=== PATIENT | male | born 1965 | race Caucasian/White ===

== ENCOUNTER 2018-01-05 11:20 | Outpatient (CLI) | payer SELFPAY ==
[~2018-01-05] VITALS: Ht 177.8 cm; Wt 90.9 kg
--- NOTE | ~2018-01-05 | HEMODYNAMI ---
PATIENT:ISSA CUMMINS MEDICAL RECORD: [id number] : 63 LOCATION:[facility] ADMISSION DATE: 01/05/18 Generatedon:01/05/201816:04 Patient name: ISSA CUMMINS Patient #: [id number] SSN: DO B: 1965 Date of study: 01/05/2018 Page: Of Hemodynamic Procedure Report Patient Data Patient Demographics Procedure consent was obtained First Name: ISSA Gender: Male Last Name: PLACIDO : 1965 [facility] Initial: DOC Age: 52 year(s) Patient #: [id number] Race: Unknown Additional ID: [id number] Contact details Address: [address] [place] [address] State: [place] City: [place] Zip code: [address] Past Medical History Allergies: No known allergies Admission Admission Data Admission Date: 01/05/2018 Admission Time: 11:20 Lab Results Lab Result Date: 01/05/2018 Lab Result Time: 0:00 Biochemistry Name Units Result Min Max BUN mg/dl 13 --(--*-)-- 7 18 Creatinine mg/dl 1 --(--*-)-- 0.6 1.3 CBC Name Units Result Min Max Hematocrit % 55.4 --(----)*- 42 54 Hemoglobin g/dl 19.8 --(----)-* 13.5 17.5 Procedure Procedure Types Cath Procedure Diagnostic Procedure [facility] w/Coronaries Sedation Charges Moderate Sedation up to 15 minutes Procedure Description Procedure Date Procedure Date: 01/05/2018 Procedure Start Time: 15:47 Procedure End Time: 16:02 Procedure Staff Name Function Lonnie Pereyra MD Performing Physician Prashanth Long RT Monitor Ervin Duncan RN Nurse Ubaldo Gutierrez RT Scrub Vincenzo Ashley RT Senior Sales Engineer Procedure Data Cath Procedure Fluoroscopy Diagnostic fluoroscopy Total fluoroscopy Time: 7.7 time: 7.7 min min Diagnostic fluoroscopy Total fluoroscopy dose: dose: 468.25 mGy 468.25 mGy Contrast Material Contrast Material Type Amount (ml) Isovue 370 98 Entry Location Entry Primary Successful Side Size Upsize Upsize Entry Closure Kenney ccessful Closure Location (Fr) 1 (Fr) 2 (Fr) Remarks Device Remarks Radial Right 6 Fr Mechanical artery Short Compression Estimated blood loss: 5 ml Diagnostic catheters Device Type Used For End Catheter Placement DIAGNOSTIC [place] 110cm 5 Procedure Fr catheter ([id number]) DIAGNOSTIC AR 2 MOD 5 Fr Procedure catheter ([id number]) Procedure Complications No complications Procedure Medications Medication Administration Route Dosage Oxygen etCO2 Nasal cannula 2 l/min Heparin Flush Bag added to field 2 bags (1000units/500ml NS) 0.9% NaCl I.V. 100 ml/hr Radial Cocktail added to field 1 syringe (Verapomil 2mg/Nitro 400mcg/Heparin 1500units) Fentanyl I.V. 100 mcg Versed I.V. 2 mg Radial Cocktail I.A. 1 syringe (Verapomil 2mg/Nitro 400mcg/Heparin 1500units) Fentanyl I.V. 50 mcg Versed I.V. 1 mg Fentanyl I.V. 50 mcg Versed I.V. 1 mg Solumedrol I.V. 125 mg Hemodynamics Rest HGB: 19.8 (g/dl) Heart Rate: 88 (bpm) Snapshots Pre Cath Intra NCS Post Cath Vital Signs Time Heart Resp SPO2 etCO2 NIBP (mmHg) Rhythm Pain Sedation Rate (ipm) (%) (mmHg) Status Level (bpm) 15:36:35 83 17 99 21.7 158/111(134) NSR 0 (11) 10(A) , No pain 15:41:00 80 16 98 24 138/100(124) NSR 0 (11) 10(A) , No pain 15:45:15 81 16 84 15 132/102(117) NSR 0 (11) 10(A) , No pain 15:49:30 74 17 91 22.5 125/86(99) NSR 0 (11) 10(A) , No pain 15:53:41 86 17 89 26.2 129/92(103) NSR 0 (11) 10(A) , No pain 15:57:57 71 16 89 22.4 116/79(95) NSR 0 (11) 10(A) , No pain 16:02:09 76 17 90 12 118/89(99) NSR 0 (11) 10(A) , No pain Medications Time Medication Route Dose Verified Delivered Reason Notes Effectiveness by by 15:37:49 Oxygen etCO2 2 l/min Lonnie Mueller Per Nasal Hafsa Duncan RN physician cannula 15:37:59 Heparin Flush added 2 bags Lonnie Mueller used for Bag to Hafsa Duncan RN procedure (1000units/500ml field NS) 15:38:09 0.9% NaCl I.V. 100 Lonnie Mueller Per ml/hr Hafsa Duncan RN physician 15:38:23 Radial Cocktail added 1 Lonnie Ervin used for (Verapomil to syringe Hafsa Duncan RN procedure 2mg/Nitro field 400mcg/Heparin 1500units) 15:45:51 Fentanyl I.V. 100 mcg Lonnie Mueller for sedation Hafsa Duncan RN 15:45:58 Versed I.V. 2 mg Lonnie Mueller for sedation Hafsa Duncan RN 15:47:51 Radial Cocktail I.A. 1 Lonnie Lonnie for (Verapomil syringe Hafsa Pereyra MD vasodilation 2mg/Nitro 400mcg/Heparin 1500units) 15:49:09 Fentanyl I.V. 50 mcg Lonnie Mueller for sedation Hafsa Duncan RN 15:49:14 Versed I.V. 1 mg Lonnie Mueller for sedation Hafsa Duncan RN 15:53:10 Fentanyl I.V. 50 mcg Lonnie Mueller for sedation Hafsa Duncan RN 15:53:14 Versed I.V. 1 mg Lonnie Mueller for sedation Hafsa Duncan RN 16:02:21 Solumedrol I.V. 125 mg Lonnie Mueller Per Hafsa Duncan RN physician Procedure Log Time Note 15:10:06 Vincenzo Ashley RT(R) sent for patient. Start room use. 15:21:07 Time tracking: Regular hours (M-F 7:00 - 5:00) 15:21:11 Plan of Care:Hemodynamics will remain stable., Cardiac rhythm will remain stable., Comfort level will be maintained., Respiratory function will remain adequate., Patient/ family verbilizes understanding of procedure., Procedure tolerated without complication., Recovers from procedure without complications.. 15:24:53 Patient received from ED to CCL 3 Alert and oriented. Tansferred to table in Supine position. 15:24:54 Warm blankets applied, and shravan hugger turned on for patient comfort. 15:24:55 Correct patient and procedure confirmed by team. 15:24:56 Signed procedure consent form obtained from patient. 15:24:57 ECG and BP/O2 sat monitors applied to patient. 15:24:59 Pre-procedure instructions explained to patient. 15:25:00 Pre-op teaching completed and patient verbalized understanding. 15:25:01 Family in waiting room. 15:25:03 Patient NPO since Breakfast. 15:25:15 Patient allergic to No known allergies 15:25:38 Previous problem with sedation/anesthesia? No ? 15:25:40 Snore? Yes 15:25:41 Sleep apnea? No 15:25:42 Deviated septum? No 15:25:42 Opens mouth fully? Yes 15:25:43 Sticks out tongue? Yes 15:25:45 Airway obstruction? No ? 15:25:47 Dentures? No ? 15:35:13 Vital chart was started 15:35:15 Baseline sample Acquired. 15:37:49 Oxygen 2 l/min etCO2 Nasal cannula was administered by Ervin Duncan RN; Per physician; 15:37:59 Heparin Flush Bag (1000units/500ml NS) 2 bags added to field was administered by Ervin Duncan RN; used for procedure; 15:38:09 0.9% NaCl 100 ml/hr I.V. was administered by Ervin Duncan RN; Per physician; 15:38:23 Radial Cocktail (Verapomil 2mg/Nitro 400mcg/Heparin 1500units) 1 syringe added to field was administered by Ervin Duncan RN; used for procedure; 15:42:46 Rhythm: sinus rhythm 15:42:49 Full Disclosure recording started 15:43:01 H&P Date Dictated: 01/05/2018 New H&P dictated by physician.. 15:43:07 Is the patient allergic to Iodine/contrast media? No. 15:43:45 Is patient on blood thinner?No 15:43:47 Patient diabetic? No. 15:43:52 Modified Venkata's test Ulnar < 7 seconds 15:43:53 Patient pain scale 0/10 ?. 15:43:57 IV patent on arrival in right forearm with 0.9% NaCl at [facility]. 15:44:32 Lab Result : BUN 13 mg/dl ::32 Lab Result : Creatinine 1 mg/dl ::32 Lab Result : Hemoglobin 19.8 g/dl ::32 Lab Result : Hematocrit 55.4 % 15:44:34 Lab results completed and on chart. 15:44:36 Right Radial & Right Groin area was prepped with chlora-prep and draped in sterile fashion 15:44:37 Alarms reviewed by R. N. 15:44:37 Sharps counted by scrub and verified by R.N. 15:44:38 Physician arrived 15:44:39 --------ALL STOP TIME OUT------ :44:39 Final Timeout: patient, procedure, and site verified with staff and physician. All members of the team are in agreement. 15:44:41 Right Radial & Right Groin site verified by team. 15:44:44 Physical assessment completed. ASA score P 2 - A patient with mild systemic disease as per Lonnie Pereyra MD. 15:44:46 Use device set Radial Dx or PCI 15:44:47 ACIST Syringe (59993) opened to sterile field. 15:44:48 Medline Cath Pack ([id number]) opened to sterile field. 15:44:48 Bag Decanter (2002) opened to sterile field. 15:44:49 ACIST Hand Control (83713) opened to sterile field. 15:44:49 ACIST Manifold (40897) opened to sterile field. 15:44:49 Tegaderm 4 x 4 (1626W) opened to sterile field. 15:44:50 MBrace Wrist Support ([id number]) opened to sterile field. 15:44:51 SHEATH 6Fr Prelude Radial ([id number]) opened to sterile field. 15:44:52 DIAGNOSTIC WIRE .035 260cm J wire (710183) opened to sterile field. 15:45:51 Fentanyl 100 mcg I.V. was administered by Ervin Duncan RN; for sedation; 15:45:58 Versed 2 mg I.V. was administered by Ervin Duncan RN; for sedation; 15:47:45 Procedure started. 15:47:48 Local anesthetic to right radial artery with Lidocaine 2% by Lonnie Pereyra MD.INITIAL ACCESS ONLY 15:47:51 Radial Cocktail (Verapomil 2mg/Nitro 400mcg/Heparin 1500units) 1 syringe I.A. was administered by Lonnie Pereyra MD; for vasodilation; 15:47:54 A 6 Fr Short sheath was inserted into the Right Radial artery 15:48:00 A DIAGNOSTIC [place] 110cm 5 Fr catheter (801377) was advanced over the wire and used for Procedure. 15:49:09 Fentanyl 50 mcg I.V. was administered by Ervin Duncan RN; for sedation; 15:49:14 Versed 1 mg I.V. was administered by Ervin Duncan RN; for sedation; 15:49:14 Zero performed for pressure channel P1 15:49:40 IV Extension Set opened to sterile field. 15:50:10 LV gram done using BLANCA 15:50:13 Injector settings: Ml/sec: 5, Volume: 15, 15:50:20 EF : 65 % 15:52:55 Catheter removed. 15:53:03 A DIAGNOSTIC AR 2 MOD 5 Fr catheter (415998V) was advanced over the wire and used for Procedure. 15:53:10 Fentanyl 50 mcg I.V. was administered by Ervin Duncan RN; for sedation; 15:53:14 Versed 1 mg I.V. was administered by Ervin Duncan RN; for sedation; 15:53:16 GUIDE 6FR EBU 3.5 catheter ([id number]) opened to sterile field. 15:53:20 Catheter exchanged over wire. 15:53:28 6 Fr ebu 3.5 guide catheter was inserted over the wire 15:53:39 LCA angiography performed. 15:55:24 Catheter exchanged over wire. 15:56:24 GUIDE 6FR JL 3.5 guide catheter (BG0GK91) opened to sterile field. 15:56:34 6 Fr jl 3.5 guide catheter was inserted over the wire 15:58:05 Guide Catheter removed. unable to cannulate vessel. 15:58:30 GUIDE 6FR EBU 3.0 catheter (AC9CFR26) opened to sterile field. 15:58:39 6 Fr ebu 3.0 guide catheter was inserted over the wire 15:59:05 LCA angiography performed. 16:00:23 Catheter removed. 16:00:26 TR BAND Standard ([id number]) opened to sterile field. 16:00:34 Sheath removed intact; hemostasis achieved with Mechanical Compression to the Right Radial artery. 16:00:35 Procedure ended.(Physican Out) 16:01: Fluoroscopy time 07.70 minutes. 16:01:07 Flurop Dose total: 468.25 16:01:07 Fluoroscopy dose: 468.25 mGy 16:01:10 Contrast amount:Isovue 370 98ml. 16:01:12 Sharps counted by scrub and verified by R.N. 16:: TR band inflated with 12cc of air. 16:01:28 Insertion/operative site no bleeding no hematoma. 16:01:28 Post Procedure Pulses reassessed and unchanged 16::39 Post procedure rhythm: unchanged. 16::41 Estimated blood loss: 5 ml 16::42 Post procedure instruction explained to patient.Patient verbalizes understanding. 16::43 Patient needs reinforcement of post procedure teaching. 16:02:00 Procedure type changed to Cath procedure, Diagnostic procedure, LHC, LHC w/Coronaries, Sedation Charges, Moderate Sedation up to 15 minutes 16:02:15 End room use (Document Last) 16:02:19 Procedure and supply charges have been captured, reviewed, submitted and are correct. 16:02:21 Solumedrol 125 mg I.V. was administered by Ervin Duncan RN; Per physician; 16:02:21 Procedure Complication : No complications 16:02:22 Vital chart was stopped 16:02:22 See physician's report for complete and final results. 16:02:24 Report given to Pre/Post Procedure Room. 16:02:26 Patient transfered to Pre/Post Procedure Room with Stretcher. 16:02:28 Procedure ended. 16:02:28 Full Disclosure recording stopped Device Usage Item Name Manufacture Quantity Catalog Number Hospital Part Current M inimal Lot# / Charge Number Stock Stock Serial# Code ACIST Syringe Acist 1 02327 914789 013915 218640 2 0 (93267) Medical Systems Inc Medline Cath Cardinal 1 [id number] 020813 20102 830793 5 Pack Health ([id number]) Bag Decanter Microtek 1 293059 42483 257264 5 () Medical Inc. ACIST Hand Acist 1 28075 144606 848225 220583 5 Control (82398) Medical Systems Inc ACIST Manifold Acist 1 57368 551829 399266 154392 5 (72750) Medical Systems Inc Tegaderm 4 x 4 3M 1 1626W 408766 694405 752411 5 (1626W) MBrace Wrist Advanced 1 140-0250-00 104961 97574 594024 5 Support Vascular ([id number]) Dynamics SHEATH 6Fr Merit 1 [id number] 234699 369873 878861 5 Prelude Radial Medical ([id number]) DIAGNOSTIC WIRE St Chris 1 598521 896183 868680 565660 3 0 .035 260cm J wire (510575) DIAGNOSTIC Terumo 1 40-9806 028891 759754 448697 5 [place] 110cm 5 Fr catheter (252651) IV Extension Hospira 1 80854-74 644413 60349 179446 5 Set DIAGNOSTIC AR 2 Cardinal 1 [id number] 203556 655225 641712 2 0 MOD 5 Fr Health catheter (889227E) GUIDE 6FR EBU Medtronic 1 [id number] 666516 35253 202241 3 3.5 catheter (JJ2FCB84) GUIDE 6FR JL Medtronic 1 [id number] 733687 16746 260199 1 3.5 guide catheter (SH3AM04) GUIDE 6FR EBU Medtronic 1 [id number] 003960 02042 685636 0 3.0 catheter ([id number]) TR BAND Terumo 1 [id number] 176241 114812 779240 4 0 Standard ([id number]) Signature Audit [place] Stage Time Signature Unsigned Intra-Procedure 01/05/2018 Prashanth Long 4:04:09 PM RT(R) Signatures Monitor : Prashanth Long RT Signature : Date : Time : [facility] [address] [place] [address]
--- NOTE | ~2018-01-05 | OP ---
PATIENT NAME: ISSA CUMMINS MEDICAL RECORD: [id number] :63 LOCATION:D.CAT ADMISSION DATE: SURGEON: ANN MAZARIEGOS MD DATE OF OPERATION: 01/05/2018 PROCEDURES: 1. Left heart catheterization. 2. Selective coronary angiography. 3. Left ventriculogram. INDICATION: Chest pain compatible with angina. PROCEDURE IN DETAIL: After informed consent was obtained and after a detailed description of risks, benefits as well as alternative therapies, the patient elected to proceed with angiogram and heart catheterization. The right radial area was prepped and draped in normal sterile fashion. Right radial artery was cannulated via modified Seldinger technique with placement of 5-Cuban sheath. All catheters exchanged through this sheath. FINDINGS: The left ventriculogram was performed in standard 30-degree BLANCA view, reveals good cardiac wall motion throughout all segments. Overall ejection fraction estimated 60%. SELECTIVE CORONARY ANGIOGRAPHY: Left main, left anterior descending, left circumflex, right coronary artery are all smooth-walled vessels with no angiographic evidence of coronary artery disease. OVERALL IMPRESSION: 1. No angiographic evidence of coronary artery disease. 2. Normal left heart pressures. 3. Normal left ventricular systolic function. Chest pain is noncardiac in etiology. Center medical management on treatment of the blood pressure and anxiety. TRANSINT:[id number] Voice Confirmation ID: [id number] DOCUMENT ID: [id number] ANN MAZARIEGOS MD at 1806 CC: [id number] DICTATION DATE: 01/05/18 1606 YARD TRUCK DRIVER: 01/05/18 1643 DEP CLI 01/05/18 [place] [id number] [place] [id number]
--- NOTE | ~2018-01-05 | HP ---
PATIENT: ISSA CUMMINS MEDICAL RECORD: [id number] ACCOUNT: [id number] LOCATION:ENRIQUE : 63 ADMISSION DATE: 01/05/18 HISTORY AND PHYSICAL EXAMINATION DIAGNOSES: 1. Angina. 2. Shortness of breath. 3. Hypertension. 4. Tachycardia. 5. Anxiety disorder. HISTORY OF PRESENT ILLNESS: This is a gentleman who went through a divorce, moved here from [place]. He has been having episodes of chest pressure with radiation to his jaw down his arm and severe shortness of breath. He has had multiple nights where this has woke him up. He has had multiple episodes of this. PHYSICAL EXAMINATION: GENERAL APPEARANCE: Well-nourished, well-developed, appears stated age. Level of distress, comfortable. PSYCHIATRIC: Mental status, alert, normal affect. Orientation, oriented to time, place and person. EYES: Lids and conjunctiva, noninjected. No discharge, no pallor. ENT: Lips, teeth, gums, normal dentition. Oropharynx, no cyanosis, no pallor. NECK: Carotid arteries, bilateral normal upstroke, no bruits, no thrills. JUGULAR VEINS: No jugular venous pressure or distention. CERVICAL LYMPH NODES: Nontender, nonenlarged. THYROID: Not enlarged. Nontender. No nodules. LUNGS: Respiratory effort, unlabored. CHEST: Normal curvature. No thoracic deformity. No chest wall tenderness. Percussion, resonant. Auscultation, clear. No wheezes, no rales, no rhonchi. CARDIOVASCULAR: Precordial exam, nondisplaced. No heaves or pericardial thrills. Rate and rhythm, regular. Heart sounds, normal S1, normal S2. No S3, no gallop, no rub. Systolic murmur, not heard. Diastolic murmur, not heard. EXTREMITIES: No cyanosis, no edema. Peripheral pulses, full and equal in all extremities, except as noted. No bruits appreciated. ABDOMEN: Soft, nondistended. Normal aorta. No bruit. Nontender. No masses. Liver, nontender, no hepatomegaly. Spleen, nontender, no splenomegaly. MUSCULOSKELETAL: No joint tenderness. No joint swelling. No erythema. NEUROLOGICAL: Normal gait, normal strength, normal tone. SKIN: Warm and dry. REVIEW OF SYSTEMS: The patient reports easy bruising but reports no swollen glands. The patient reports no fever, no night sweats, no significant weight gain, no significant weight loss. No significant exercise tolerance. The patient reports no dry eyes, no irritation, no vision change. Patient reports no difficulty hearing and no ear pain. Patient reports no frequent nose bleeds or nose and sinus problems. Patient reports on arm pain on exertion. No shortness of breath while lying down. No history of heart murmur. Patient reports no cough, no wheezing or coughing up blood. Patient reports no abdominal pain, no vomiting. Normal appetite. No diarrhea and not vomiting blood. No nausea and no constipation. Patient reports no incontinence. No difficulty urinating. No hematuria. No increased frequency. Patient reports no muscle aches. No weakness, no arthralgias, no back pain. No swelling of the HISTORY AND PHYSICAL [id number] ISSA CUMMINS extremities. Patient reports no abnormal mole, no jaundice, no rashes. Reports no loss of consciousness. No weakness and no numbness. No seizures, dizziness, or headaches. The patient reports no depression, no sleep disturbance, feeling safe in a relationship and no alcohol abuse. Patient reports on fatigue. Reports no runny nose or sinus pressure. No itching, no hives, and no frequent sneezing. OVERALL IMPRESSION: Anginal symptomatology with shortness of breath, out of control hypertension. He was restarted on his lisinopril and amlodipine, but he is still quite tachycardic. We will give him Lopressor. PLAN: For coronary angiography. Further care depends upon the findings of the angiography. TRANSINT:[id number] Voice Confirmation ID: [id number] DOCUMENT ID: [id number] ANN MAZARIEGOS MD at 1806 CC: [id number] DICTATION DATE: 01/05/18 1222 SLEEP MANAGER: 01/05/18 1231 DEP CLI 01/05/18 [place] [id number] [place] [address]
[2018-01-05 11:26] VITALS: Ht 177.8 cm; Wt 90.9 kg
[2018-01-05] MEDS ORDERED: NORVASC10 MG PO (11:28)
[2018-01-05] MEDS ORDERED: LISINOPRIL5 MG PO (11:28)
[2018-01-05] MEDS ORDERED: ATIVAN1 MG PO (11:28)
[2018-01-05] MEDS ORDERED: BENADRYL25 MG PO (11:29)
[2018-01-05] MEDS ORDERED: PROAIR HFA8.5 GM INH (11:29)
[2018-01-05] MEDS ORDERED: CLARITIN 10 MG10 MG PO (11:29)
[2018-01-05 12:10] LABS: BASOPHILS 0.3 % (0-2); EOSINOPHILS 0.6 % (0-7); HEMATOCRIT 55.4 % (42.0-54.0); HEMOGLOBIN 19.8 g/dL (13.5-17.5); IMMATURE GRANULOCYTES 0.7 % (0-5); LYMPHOCYTES 22.1 % (15-50); MCH 31.6 pg (26.0-34.0); MCHC 35.7 g/dL (31.0-37.0); MCV 88.4 fL (80.0-100.0); MEAN PLATELET VOLUME 10.8 fL (7.4-10.4); MONOCYTES 10.1 % (2-11); NEUTROPHILS 66.2 % (40-80); PLATELET COUNT 345 10x3/uL (130-400); RBC 6.27 10x6/uL (4.20-6.10); RDW 12.5 % (11.5-14.5); WBC 11.2 10x3/uL (4.8-10.8)
[2018-01-05 12:24] LABS: ALBUMIN 4.1 g/dL (3.4-5.0); ALKALINE PHOSPHATASE 85 U/L (46-116); ALT (SGPT) 31 U/L (10-68); BILIRUBIN - TOTAL 0.59 mg/dL (0.2-1.3); CALC OSMOLALITY 275 mosm/kg (275-300); CALCIUM 9.3 mg/dL (8.5-10.1); CARBON DIOXIDE 25.5 mmol/L (21.0-32.0); CHLORIDE - SERUM 101 mmol/L (98-107); GLUCOSE 138 mg/dL (74-106); POTASSIUM - SERUM 3.7 mmol/L (3.5-5.1); PROTEIN - SERUM 7.3 g/dL (6.4-8.2); SODIUM 137 mmol/L (136-145); UREA NITROGEN 13 mg/dL (7-18); eGFR NON AFRICAN AMERICAN 83 mL/min (90-120)
[2018-01-05 12:34] LABS: TROPONIN-I < 0.017 ng/mL (0.000-0.060)
[2018-01-05 16:18] VITALS: BP 130/96
[2018-01-05] MEDS ORDERED: METOPROLOL TART50 MG PO (16:20)
== END 2018-01-05 18:32 ==
LOC: D.CATH 11:20 → D.ER 11:20 → EDSTATUS 12:30 → D.CATH 18:32
PROVIDERS: Emergency Medicine
DX: R07.89 Other chest pain (principal); I10 Essential (primary) hypertension; I47.2 Ventricular tachycardia; F41.9 Anxiety disorder, unspecified; Z01.812 Encounter for preprocedural laboratory examination